=== PATIENT | female | born 1975 | race Caucasian/White ===

== ENCOUNTER 2018-01-05 10:00 | Day surgery (SDC) | payer OTHER ==
[~2018-01-05 10:00] MED LIST: LIDOCAINE 2% (SDV) 5 ML INJ
[2018-01-05] MEDS ORDERED: DEXAMETHASONE 4 MG/ML 1 ML INJ (13:18)
[2018-01-05] MEDS ORDERED: CEFAZOLIN 1 GM INJ (13:19)
[2018-01-05] MEDS ORDERED: ROCURONIUM 50 MG INJ (13:19)
[2018-01-05] MEDS ORDERED: PROPOFOL 40 ML (13:19)
[2018-01-05] MEDS ORDERED: NEOMYC/POLYMYX/BACIT 30 GM OINT (13:21)
[2018-01-05] MEDS ORDERED: LABETALOL HCL 20MG INJ ×2 (13:24→14:02)
[2018-01-05] MEDS: LIDOCAINE 1%/EPI 30 ML INJ (14:04)
[2018-01-05] MEDS: PHENYLephrine 0.25% 15 ML NAS SPRAY (14:05)
[2018-01-05] MEDS ORDERED: SUGAMMADEX SODIUM 200 MG/2 ML VIAL IV (15:27)
[2018-01-05] MEDS ORDERED: ONDANSETRON 4 MG INJ (15:33)
[2018-01-05] MEDS ORDERED: METOCLOPRAMIDE 10 MG INJ IV (16:00)
[2018-01-05] MEDS ORDERED: hydrALAzine 20 MG INJ IV (16:00)
[2018-01-05] MEDS ORDERED: FENTAnyl 50 MCG/ML VIAL IV ×3 (16:00)
[2018-01-05] MEDS ORDERED: ONDANSETRON 4 MG INJ IV (16:00)
[2018-01-05] MEDS ORDERED: KETOROLAC 30 MG INJ IV (16:00)
[2018-01-05] MEDS ORDERED: LABETALOL HCL 20MG INJ IV (16:00)
[2018-01-05] MEDS ORDERED: EPHEDrine SULFATE 50 MG/5 ML SYG IV (16:00)
[2018-01-05] MEDS ORDERED: DIPHENHYDRAMINE 50 MG INJ IV (16:00)
[2018-01-05] MEDS ORDERED: HYDROmorphONE (0.2 MG/ML) 10ML SYG IV ×2 (16:00)
[2018-01-05] MEDS ORDERED: OXYCODONE/ACETAMINOPHEN (5/325) TAB PO (16:00)
[2018-01-05] MEDS ORDERED: MEPERIDINE 25 MG INJ IV (16:00)
[2018-01-05] MEDS: HYDROmorphONE (0.2 MG/ML) 10ML SYG IV (16:04)
[2018-01-05] MEDS: OXYCODONE/ACETAMINOPHEN (5/325) TAB PO (17:23)
== END 2018-01-05 18:35 | disposition home or self-care (01) ==
LOC: SDS 10:00
DX: J34.2 Deviated nasal septum (principal); J34.3 Hypertrophy of nasal turbinates; J32.4 Chronic pansinusitis; F17.200 Nicotine dependence, unspecified, uncomplicated
CPT/HCPCS: 30140; 84703; 88300; 88304